=== PATIENT | female | born 1960 | race African-American/Black ===

== ENCOUNTER 2018-03-23 11:17 | Inpatient (IN) | payer MEDICARE ==
[~2018-03-23] VITALS: Ht 167.6 cm; Wt 105.0 kg
[~2018-03-23 11:17] MED LIST: ADVAIR DISKUS INH; ALBUTEROL S2.5 MG/.5 IN; ALLEGRA30 MG OR; CHILD ASA LS81 MG OR; COZAAR25 MG PO; JANUVIA50 MG PO; LANTUS SC; LASIX 40 MG TAB40 MG PO; LEVAQUIN500 MG PO; LEVEMIR SC; METFORMIN1000 MG OR; NAPROXEN500 MG OR; NEURONTIN100 MG OR; NORVASC10 M1 OR; PHENTERMINE37.5 MG PO; PLAVIX75 MG OR; PLETAL50 MG OR; PREDNISONE10 MG PO; PROTONIX40 M1 PO; SINGULAIR OR; SPIRIVA HANDIHALER IN; SYMBICORT1 AE1 IN; TOPROL XL25 M1 OR
[2018-03-23 11:58] VITALS: BP 152/95
[2018-03-23 11:58] LABS: HEMATOCRIT 41.2 % (37.0-47.0); HEMOGLOBIN 13.1 g/dl (12.0-16.0); IMMATURE GRANULOCYTES 1.3 % (0.0-1.0); MEAN CELL VOLUME 82.4 fL CALC (80.0-100.0); MEAN CORPUSCULAR HGB 26.2 pG CALC (26.0-32.0); MEAN CORPUSCULAR HGB CONC 31.8 g/L CALC (32.0-36.0); NEUT# 13.54 thou/uL (2.00-7.15); RED CELL DISTRI WIDTH 17.6 % (11.5-15.5)
--- NOTE | 2018-03-23 12:00 | NUR ---
PT ARRIVED ON UNIT VIA W/C @ 1132 DIRECT ADMIT WITH O2 VIA NC IN PLACE, ALERT AND ORIENTED X 4, DENIES PAIN AT THIS TIME, ORIENTED TO ROOM AND CALL BARR, SETTLED IN BED, EDUCATED ON RIGHTS, WILL CONTINUE TO [place].
[2018-03-23 12:14] LABS: CREATININE 1.4 mg/dL (0.5-1.0); POTASSIUM 4.5 mmol/l (3.5-5.1)
[2018-03-23 14:32] LABS: URINE BILIRUBIN - DIPSTICK NEGATIVE (NEGATIVE); URINE BLOOD DIPSTICK TRACE-INTACT (NEGATIVE); URINE COLOR YELLOW; URINE GLUCOSE - DIPSTICK NEGATIVE (NEGATIVE); URINE KETONE NEGATIVE (NEGATIVE); URINE LEUK ESTERASE NEGATIVE (NEGATIVE); URINE NITRITE - DIPSTICK NEGATIVE (Negative); URINE PROTEIN - DIPSTICK TRACE mg/dL (NEG-TRACE); URINE UROBILINOGEN - DIPSTICK 0.2 E.U./dL (0.2)
[2018-03-23 14:45] LABS: URINE CLARITY CLEAR
[2018-03-23 15:53] VITALS: BP 129/73
[2018-03-23 19:27] VITALS: BP 145/72
--- NOTE | 2018-03-23 20:10 | NUR ---
PT AWAKE RESTING IN BED. ALERT AND ORIENTED X4. O2 N/C ON AT 2L. RESP EVEN AND UNLABORED. VSS. PT IS AFEBRILE. O2 SAT 94%. LUNGS CLEAR BILAT. ABD SOFT AND NONDISTENDED WITH BOWEL SOUNDS PRESENT. PT HAS +1 NONPITTING EDEMA NOTED TO RT LOWER EXT. PEDAL PULSES PALPATED BILAT. HEPLOCK PATENT IN RT FOREARM NO REDNESS OR TENDERNESS AT SITE. SKIN IS INTACT. TELE READING SR PER E.R HOSE MAKER. PT DENIES ANY PAIN OR DISCOMFORT. FREQUENT ROUNDS MADE. CALL BARR WITHIN REACH.
[2018-03-24 00:05] VITALS: BP 124/81
--- NOTE | 2018-03-24 00:13 | NUR ---
RESTING IN BED WITH EYES CLOSED. RESP EVEN AND UNLABORED. NO DISTRESS NOTED. PT IS WEARING HOME CPAP. HEPLOCK PATENT. VSS. TELE INTACT. WILL CONTINUE TO MONITOR. FREQUENT ROUNDS MADE. CALL BARR WITHIN REACH.
[2018-03-24 04:05] VITALS: BP 149/84
--- NOTE | 2018-03-24 04:30 | NUR ---
PT WOKE FOR MORNING VITALS. VSS. PT REFUSES TO BE WT. UNABLE TO GET PTS QD WT DUE TO PT REFUSING. RESP EVEN AND UNLABORED. NO DISTRESS NOTED. HEPLOCK PATENT. TELE INTACT. ASSESSMENT UNCHANGED. FREQUENT ROUNDS MADE. CALL BARR WITHIN REACH.
--- NOTE | 2018-03-24 04:45 | NUR ---
PT OOB TO BATHROOM AND AGREES TO BE WEIGHED. WT OBTAINED AND DOCUMENTED 116.2KG ON STANDING SCALE.
[2018-03-24 05:50] LABS: HEMATOCRIT 37.6 % (37.0-47.0); HEMOGLOBIN 11.9 g/dl (12.0-16.0); IMMATURE GRANULOCYTES 1.5 % (0.0-1.0); MEAN CELL VOLUME 81.7 fL CALC (80.0-100.0); MEAN CORPUSCULAR HGB 25.9 pG CALC (26.0-32.0); MEAN CORPUSCULAR HGB CONC 31.6 g/L CALC (32.0-36.0); NEUT# 11.9 thou/uL (2.00-7.15); RED BLOOD COUNT 4.6 mill/uL (4.20-5.60); RED CELL DISTRI WIDTH 17.2 % (11.5-15.5)
[2018-03-24 06:00] LABS: ALBUMIN 3.5 g/dL (3.2-5.0); BILIRUBIN, TOTAL 0.6 mg/dL (0.0-1.4); CREATININE 1.2 mg/dL (0.5-1.0); POTASSIUM 4.4 mmol/l (3.5-5.1); TOTAL PROTEIN 6.6 g/dL (6.3-8.2)
[2018-03-24 06:02] LABS: CHOLESTEROL HDL RATIO 1.7 (<4.4 (CALC)); MAGNESIUM 1.9 mg/dL (1.6-2.3)
--- NOTE | 2018-03-24 07:41 | NUR ---
SHIFT CHANGE REPORT FROM ALBERTO, PT AWAKE ALERT AND ORIENTED, DENIES PAIN BUT C/O DRY MOUTH AND GIVEN ICE CHIPS REQUESTED, O2 @ 2L VIA NC IN PLACE, TELE MONITER IN PLACE. PT INFORMED SHE IS BEING MONITORED FOR I&O AND SHOULD REPORT ANY FLUIDS SHE INGEST, CALL BARR IN REACH.
--- NOTE | 2018-03-24 08:00 | NUR ---
PT QUESTIONED ME IF SHE WAS ON FLUID RESTRICTION AND I INFORMED HER SHE WAS ON STRICT I&O BUT NOT FLUID RESTRICTION AND EXPLAINED THE DIFFERENCE BETWEEN THE TWO. SHE THEN REPORTED RN AND AUTOMATION LEAD REFUSED TO GIVE HER H2O WHEN SHE REQUESTED IT TELLING HER SHE WAS ON FLUID RESTRICTION. SHE FURTHER COMPLAINED HER MOUTH WAS VERY DRY AND SHE WAS UNCOMFORTABLE WITH IT ALSO THAT NO ONE HAD TOLD HER ABOUT THIS NEW ORDER. ORDERS WERE REVIEWED AND REMAINDED SAME (STRICT I&O). SHE WAS OFFERED H2O AT THIS TIME.
--- NOTE | 2018-03-24 08:38 | NUR ---
CHASE FROM DIETARY REPORTED PT DOES NOT WANT TO TALK TO HER ABOUT MEAL,I WENT TO INVESTIGATE MATTER AND PT REPORTED CHASE WAS VERY RUDE TO HER ADDRESSING HER A MALE, SHE ADVISED HER SHE WAS NOT A MALE AND SOME ARGUENT CONSUED WHICH MADE PT IRATE TO THE POINT WHERE SHE REFUSES HER MEAL STATING SHE DOES NOT KNOW WHAT CHASE PLACED IN HER MEAL FROM THE KITCHEN TO THE UNIT. I WAS NOT ABLE TO REASSURE HER THAT STAFF WOULD/COULD NOT DO ANYTHING TO HARM OUR PTS, THERFORE I RELAYED CONCERN TO DIAMOND SETTER APPRENTICE IT APPEARS THE SITUATION WILL GET OUT OF HAND.
[2018-03-24 09:42] VITALS: BP 163/90
--- NOTE | 2018-03-24 11:00 | NUR ---
MEAL TEMPERER CAME TO UNIT IMMEDIATELY AFTER HEARING OF PT'S CONCERNS AND ADDRESSED SITUATION, SOLUTION MANAGER WAS ALSO INFORMED OF CONCERNS AND WENT TO SPEAK WITH PT. PT WAS VERY APPRECIATIVE OF STAFF'S COMING TO ADDRESS HER CONCERNS. SHE WAS AND IS STILL ADAMANT ABOUT NOT EATING FOOD FROM OUR KITCHEN AND MAINTAINS SHE DOES NOT KNOW WHAT CHASE MIGHT PUT N HER FOOD.
[2018-03-24 12:00] VITALS: BP 127/70
--- NOTE | 2018-03-24 12:00 | NUR ---
PT WAS THANKFUL FOR THE INTERVENTION BUT DID NOT CHANGE HER MIND ABOUT NOT EATING FROM OUR KITCHEN.
[2018-03-24 16:00] VITALS: BP 116/78
--- NOTE | 2018-03-24 16:00 | NUR ---
INFORMED OF NEW ORDERS, TRANSPORTED OFF UNIT FOR PROCEDURE IN W/C WITH STAFF AND RETURNED DURING SUPPER TIME, ALL NEEDS ADDRESSED, WILL CONTINUE TO MONITOR.
[2018-03-24 19:25] VITALS: BP 144/77
--- NOTE | 2018-03-24 20:00 | NUR ---
PT SITTING ON SIDE OF BED. RESP EVEN AND UNLABORED WITH O2 IN PLACE. LUNGS DIMINISHED BILAT. TELE IN PLACE. ABD SOFT; ACTIVE BOWEL SOUNDS NOTED. PEDAL PULSES PALPATED BILAT. IV RFA PATENT; FLUSHED WITHOUT DIFFICULTY. PT OFFERS NO COMPLAINTS. SAFETY PRECAUTIONS REINFORCED. FREQUENT ROUNDS MADE; CALL LIGHT WITHIN REACH.
[2018-03-25 00:08] VITALS: BP 132/80
--- NOTE | 2018-03-25 00:20 | NUR ---
RESP EVEN AND UNLABORED WITH CPAP IN PLACE. TELE IN PLACE. CALL LIGHT WITHIN REACH.
--- NOTE | 2018-03-25 04:25 | NUR ---
ASSESSMENT UNCHANGED. RESP EVEN AND UNLABORED WITH CPAP IN PLACE. TELE IN PLACE. PT DENIES PAIN OR DISCOMFORT. CALL LIGHT WITHIN REACH.
[2018-03-25 04:55] VITALS: BP 124/74
[2018-03-25 05:23] LABS: HEMATOCRIT 36.4 % (37.0-47.0); HEMOGLOBIN 11.7 g/dl (12.0-16.0); IMMATURE GRANULOCYTES 1.2 % (0.0-1.0); MEAN CORPUSCULAR HGB 26.4 pG CALC (26.0-32.0); MEAN CORPUSCULAR HGB CONC 32.1 g/L CALC (32.0-36.0); NEUT# 13.39 thou/uL (2.00-7.15); RED BLOOD COUNT 4.44 mill/uL (4.20-5.60); RED CELL DISTRI WIDTH 17.4 % (11.5-15.5)
[2018-03-25 05:39] LABS: ALBUMIN 3.2 g/dL (3.2-5.0); BILIRUBIN, TOTAL 0.5 mg/dL (0.0-1.4); CREATININE 1.3 mg/dL (0.5-1.0); POTASSIUM 4.4 mmol/l (3.5-5.1); TOTAL PROTEIN 6.1 g/dL (6.3-8.2)
--- NOTE | 2018-03-25 07:00 | NUR ---
SHIFT CHANGE REPORT FROM LORETO, PT AWAKE ALERT AND ORIENTED SITTING UP AT BEDSIDE, NO C/O DISCOMFORT AT THIS TIME, MAINTAINS HER REFUSAL TO EAT FORM OUR KITCHEN AND HAD SPOUSE BROUGHT IN MEAL, WILL CONTINUE TO MONITOR AND ADDRESS NEEDS.
[2018-03-25 07:45] VITALS: BP 133/73
--- NOTE | 2018-03-25 11:28 | NUR ---
RESTING IN BED, ALL NEEDS MET/ADDRESSED, STATES SHE WILL BE ASKING SPOUSE TO BRING HER LUNCH AGAIN TODAY, SPOUSE AND FAMILY AT BEDSIDE
--- NOTE | 2018-03-25 11:41 | NUR ---
DR ZELAYA ROUNDED AND INFORMED PT OF POC, WILL CONTINUE TO MONITOR.
[2018-03-25 12:05] VITALS: BP 130/74
[2018-03-25 15:56] VITALS: BP 124/72
[2018-03-25 19:00] VITALS: BP 124/72
--- NOTE | 2018-03-25 22:00 | NUR ---
PREVIOUSLY ATTEMPTED TO FLUSH PT IV. PT STATES BURNING BUT NORMAL FOR HER AND SHE DIDN'T WANT TO LOSE THE IV SITE. DIFFICULT TO START NS FLUSH BUT PROCEEDED TO FLUSH WELL GOING VERY SLOW FOR PATIENT. SOLUMEDROL GIVEN PER MAR WITH OUT ISSUE THEN FOLLOWED WITH NS FLUSH WHICH STARTED BECOMING DIFFICULT TO FLUSH AND PT STATES BURNING MORE. NEW IV STARTED LFA BY PADMINI ZAPATA X1 ATTEMPT. NEW IV FLUSHED WELL AND ANTIBIOTIC HUNG PER JAN.
[2018-03-26 00:10] VITALS: BP 128/74
[2018-03-26 04:15] VITALS: BP 137/85
[2018-03-26 05:17] LABS: HEMATOCRIT 36.9 % (37.0-47.0); HEMOGLOBIN 11.7 g/dl (12.0-16.0); IMMATURE GRANULOCYTES 1.3 % (0.0-1.0); MEAN CELL VOLUME 82.9 fL CALC (80.0-100.0); MEAN CORPUSCULAR HGB 26.3 pG CALC (26.0-32.0); MEAN CORPUSCULAR HGB CONC 31.7 g/L CALC (32.0-36.0); NEUT# 13.85 thou/uL (2.00-7.15); RED BLOOD COUNT 4.45 mill/uL (4.20-5.60); RED CELL DISTRI WIDTH 17.3 % (11.5-15.5)
[2018-03-26 05:39] LABS: CREATININE 1.5 mg/dL (0.5-1.0); POTASSIUM 4.4 mmol/l (3.5-5.1)
--- NOTE | 2018-03-26 07:00 | NUR ---
SHIFT CHANGE REPORT FROM TIBURCIO ANDINO AWAKE ALERT AND ORIENTED, O2 @ 2L VIA NC IN PLACE, TELE MONITOR IN PLACE, NO C/O DISCOMFORT, CALL BARR IN REACH.
--- NOTE | 2018-03-26 07:30 | NUR ---
REPORT TO NEXT SHIFT. PT SITTING UP ON SIDE OF BED WITH FAMILY AT BEDSIDE.
[2018-03-26 07:56] VITALS: BP 140/78
--- NOTE | 2018-03-26 09:49 | NUR ---
PT JUST ARRIVED FROM BR, CHANGE IN STATUS OBSERVED, PT REPORTED SHE HAS MIDSTERNAL CHEST PAIN AND SOB OBSERVED, EKG ORDERED, WILL CONTINUE TO MONITOR AND ASSESS.
--- NOTE | 2018-03-26 10:05 | NUR ---
DR ZELAYA JUST ARRIVED TO ROUND AND INFORMED OF CONCERNS, WILL CONTINUE TO MONITOR.
[2018-03-26 11:50] VITALS: BP 138/75
--- NOTE | 2018-03-26 12:00 | NUR ---
PT REQUESTED MEAL BUT ONLY TOOK FEW BITES. LEFT UNIT FOR ULTRA SOUND OF LE AND RETURNED, SETTLED IN BED, COMMUNICATING WITH VISITORS, STATES HER CHEST PAIN IS RESOLVED, WILL CONTINUE TO MONITOR.
[2018-03-26 16:05] VITALS: BP 152/73
--- NOTE | 2018-03-26 19:00 | NUR ---
REPORT RECEIVED FROM PADMINI KIM.
[2018-03-26 19:10] VITALS: BP 127/70
--- NOTE | 2018-03-26 19:33 | NUR ---
ASSESSMENT CHARTED. PT ALERT AND ORIENTED, CALM AND COOPERATIVE. DENIES ANY PAIN OR NEEDS AT THIS TIME. RESP EVEN AND UNLABORED. HR REGULAR, PULSES STRONG. FAUSTO HOSE IN PLACE W NON SLIP SOCKS OVER, SIDE RAILS UP, CALL LIGHT IN REACH. PT TEACHING DONE AND RESPONSIVE. WILL CONTINUE TO MONITOR.
--- NOTE | 2018-03-27 | NUR ---
IN TO CHECK ON PATIENT, LAYING IN BED WITH CPAP. AWOKE UPON OUR ENTRANCE TO ROOM. FOCUS ASSESSMENT PER CHART.
[2018-03-27 00:05] VITALS: BP 149/74
[2018-03-27 04:10] VITALS: BP 131/72
[2018-03-27 05:25] LABS: HEMATOCRIT 38.5 % (37.0-47.0); HEMOGLOBIN 12.3 g/dl (12.0-16.0); IMMATURE GRANULOCYTES 1.6 % (0.0-1.0); MEAN CORPUSCULAR HGB 26.5 pG CALC (26.0-32.0); MEAN CORPUSCULAR HGB CONC 31.9 g/L CALC (32.0-36.0); NEUT# 11.96 thou/uL (2.00-7.15); RED BLOOD COUNT 4.64 mill/uL (4.20-5.60); RED CELL DISTRI WIDTH 17.2 % (11.5-15.5)
[2018-03-27 05:38] LABS: ALBUMIN 3.1 g/dL (3.2-5.0); BILIRUBIN, TOTAL 0.4 mg/dL (0.0-1.4); CREATININE 1.2 mg/dL (0.5-1.0); MAGNESIUM 1.8 mg/dL (1.6-2.3)
--- NOTE | 2018-03-27 06:21 | NUR ---
ENTERED ROOM FOR MEDICINE/FLUSH. PT AWOKE UPON ENTERING. PLEASANT, ALERT AND ORIENTED. DENIES NEEDS AT THIS TIME. PT STATES SHE SLEPT PRETTY WELL. CALL LIGHT IN REACH.
--- NOTE | 2018-03-27 07:00 | NUR ---
BEDSIDE REPORT RECEIVCED BY JOSE. PT IS SITTING IN THE SIDE OF THE BED WITH NO S/S OF DISTRESS NOTED. PT DENIES NEEDS AT THIS TIME. CALL LIGHT IN REACH.
[2018-03-27 08:00] VITALS: BP 146/85
--- NOTE | 2018-03-27 08:05 | NUR ---
PT IS SITTING IN THE SIDE OF THE BED. ASSESSMENT DONE AND TELE IN PLACE. LUNG SOUND CLEAR/ DIMINISHED. O2 AT 2L/MIN VIA NC.# 22RW THAT APPEARS HEALTHY. PT DENIES PAIN AT THIS TIME. SAFETY PRECAUTIONS REINFORCED AND CALL LIGHT IN REACH.
[2018-03-27] MEDS ORDERED: LOPRESSOR25 M1 PO (10:50)
[2018-03-27] MEDS ORDERED: LOPRESSOR 550 MG/TAB PO (10:50)
[2018-03-27] MEDS ORDERED: CLONIDINE0.1 MG PO (10:50)
[2018-03-27] MEDS ORDERED: COZAAR100 MG PO (10:51)
[2018-03-27] MEDS ORDERED: LIPITOR40 M1 PO (10:55)
[2018-03-27] MEDS ORDERED: HUMULIN 70/30 SC (10:55)
[2018-03-27] MEDS ORDERED: PREDNISONE10 MG PO (10:58)
[2018-03-27] MEDS ORDERED: DOXYCYCL HYC100 MG PO (10:58)
[2018-03-27] MEDS ORDERED: BUMETANIDE0.5 MG PO (10:58)
[2018-03-27 11:58] VITALS: BP 145/81
--- NOTE | 2018-03-27 12:00 | NUR ---
PT IS SITTING IN RECLINER EATING HER LUNCH WITH NO S/S OF DISTRESS NOTED. PT DENIES NEEDS AT THIS TIME. CALL LIGHT IN REACH.
--- NOTE | 2018-03-27 14:32 | NUR ---
Discharge instructions given. Patient verbalizes understanding of same. Discharged in stable condition via Wheelchair to Home with spouse. All belongings sent with pt.
== END 2018-03-27 14:32 | disposition home health service (06) | DRG 291 ==
LOC: MS2 11:17
PROVIDERS: Internal Medicine; Nurse Practitioner Family; ADMIT Internal Medicine; ATTEND Internal Medicine
DX: I13.0 Hypertensive heart and chronic kidney disease with heart failure and stage 1 through stage 4 chronic kidney disease, or unspecified chronic kidney disease (principal); I50.33 Acute on chronic diastolic (congestive) heart failure; E11.22 Type 2 diabetes mellitus with diabetic chronic kidney disease; E11.42 Type 2 diabetes mellitus with diabetic polyneuropathy; J44.1 Chronic obstructive pulmonary disease with (acute) exacerbation; R04.2 Hemoptysis; Z68.41 Body mass index [BMI] 40.0-44.9, adult; N18.3 Chronic kidney disease, stage 3 (moderate); E11.51 Type 2 diabetes mellitus with diabetic peripheral angiopathy without gangrene; E78.5 Hyperlipidemia, unspecified; I25.10 Atherosclerotic heart disease of native coronary artery without angina pectoris; E66.9 Obesity, unspecified; M79.604 Pain in right leg; Z95.5 Presence of coronary angioplasty implant and graft; Z95.828 Presence of other vascular implants and grafts; Z99.81 Dependence on supplemental oxygen; Z86.73 Personal history of transient ischemic attack (TIA), and cerebral infarction without residual deficits; Z87.891 Personal history of nicotine dependence; Z79.4 Long term (current) use of insulin; R06.00 Dyspnea, unspecified
CPT/HCPCS: A9540; A9567

== ENCOUNTER 2018-06-10 00:39 | Inpatient (IN) | payer MEDICARE ==
[~2018-06-10] VITALS: Ht 167.6 cm; Wt 123.3 kg
[~2018-06-10 00:39] MED LIST changes: +BUMETANIDE0.5 MG PO; +CLONIDINE0.1 MG PO; +COZAAR100 MG PO; +DOXYCYCL HYC100 MG PO; +HUMULIN 70/30 SC; +LIPITOR40 M1 PO; +LOPRESSOR 550 MG/TAB PO; +LOPRESSOR25 M1 PO
--- NOTE | 2018-06-10 00:39 | NUR ---
TO ROOM 9 VIA STRETCHER BY EMS. ALERT. GAMAL. O2 VIA N/C IN USE. REPORTS USES N/C AT 4-6 LITERS/MIN DURING DAY AND C-PAP AT NIGHT. REMOVED C-PAP TO GO TO BATHROOM. FELL ONTO FLOOR. FAMILY STARTED CPR
[2018-06-10] MEDS ORDERED: BUMEX1 M1 PO (01:13)
[2018-06-10] MEDS ORDERED: CILOSTAZOL100 MG PO (01:14)
[2018-06-10] MEDS ORDERED: HUMULIN 70/30 SC ×2 (01:16→01:17)
[2018-06-10] MEDS ORDERED: LOSARTAN POT50 MG PO (01:18)
[2018-06-10] MEDS ORDERED: PROTONIX40 M2 PO (01:19)
[2018-06-10] MEDS ORDERED: ALLEGRA180 MG PO (01:20)
[2018-06-10] MEDS ORDERED: DULERA1 AE1 IN (01:21)
[2018-06-10] MEDS ORDERED: SPIRIVA HANDIH18 MCG IN (01:22)
[2018-06-10] MEDS ORDERED: VENTOLIN HFA IN (01:23)
--- NOTE | 2018-06-10 01:30 | NUR ---
BEDRESTING. O2 IN USE RECOMMENDED. SAT REMAINS GREATER THAN 90%. C/O H/A
[2018-06-10 01:41] LABS: HEMATOCRIT 36.8 % (37.0-47.0); HEMOGLOBIN 11.7 g/dl (12.0-16.0); IMMATURE GRANULOCYTES 1.3 % (0.0-1.0); MEAN CELL VOLUME 81.2 fL CALC (80.0-100.0); MEAN CORPUSCULAR HGB 25.8 pG CALC (26.0-32.0); MEAN CORPUSCULAR HGB CONC 31.8 g/L CALC (32.0-36.0); NEUT# 7.44 thou/uL (2.00-7.15); RED BLOOD COUNT 4.53 mill/uL (4.20-5.60); RED CELL DISTRI WIDTH 15.5 % (11.5-15.5)
[2018-06-10 01:57] LABS: BILIRUBIN, TOTAL 0.7 mg/dL (0.0-1.4); CREATININE 2.1 mg/dL (0.5-1.0); POTASSIUM 3.4 mmol/l (3.5-5.1); TOTAL PROTEIN 6.1 g/dL (6.3-8.2)
--- NOTE | 2018-06-10 02:30 | NUR ---
STATES VOMITIED WHILE IN CT. FAMILY REMAINS AT BEDSIDE
--- NOTE | 2018-06-10 03:00 | NUR ---
BEDRESTING. EYES CLOSED. NO FURTHER VOMITING
--- NOTE | 2018-06-10 03:16 | NUR ---
VOIDED 300ML CLEAR URINE ON BEDPAN
--- NOTE | 2018-06-10 03:20 | NUR ---
DISCUSSED FINDINGS WITH PT AND ADVISED ADMISSION. PT AGREED. FAMILY GOING HOME TO GET C.PAP FOR PATIENT.
[2018-06-10 03:33] LABS: URINE BILIRUBIN - DIPSTICK NEGATIVE (NEGATIVE); URINE BLOOD DIPSTICK TRACE-INTACT (NEGATIVE); URINE COLOR YELLOW; URINE GLUCOSE - DIPSTICK 100 mg/dL (NEGATIVE); URINE KETONE NEGATIVE (NEGATIVE); URINE LEUK ESTERASE NEGATIVE (NEGATIVE); URINE NITRITE - DIPSTICK NEGATIVE (Negative); URINE PH 6.5 (4.5-8.0); URINE PROTEIN - DIPSTICK 100 mg/dL (NEG-TRACE); URINE UROBILINOGEN - DIPSTICK 0.2 E.U./dL (0.2)
[2018-06-10 03:36] LABS: URINE CLARITY CLEAR
[2018-06-10 03:38] LABS: BARBITURATES NEGATIVE (NEGATIVE); COCAINE NEGATIVE (NEGATIVE); METHADONE NEGATIVE (NEGATIVE); OXCYCODONE NEGATIVE (NEGATIVE); TETRAHYDROCANNABIONOL NEGATIVE (NEGATIVE); TRICYLIC ANTIDEPRESSANTS NEGATIVE (NEGATIVE)
[2018-06-10 03:45] LABS: URINE BACTERIA FEW hpf; URINE RBC 0-2 RBC/hpf (0-5); URINE SQUAMOUS EPITHELIAL CELL RARE EPI/hpf (0-FEW); URINE WBC 0-2 WBC/hpf (0-5)
--- NOTE | 2018-06-10 03:50 | NUR ---
report called to karma horton. to go to [facility]
--- NOTE | 2018-06-10 04:00 | NUR ---
TO [facility] VIA STRETCHER. DAUGHTER AND AT SIDE. BROUGHT C.PAP FORM HOME
[2018-06-10 04:10] VITALS: BP 125/80
--- NOTE | 2018-06-10 04:10 | NUR ---
PT ARRIVED TO UNIT VIA STRETCHER WITH ER STAFF AND 2 FAMILY MEMBERS; FLAT AFFECT AND ORIENTED. PT SELF ASSISTED HERSELF FROM STRETCHER TO BED. C/O HEADACHE 06/06; STATES THAT TORADOL GIVEN IN ER IS HAVING GOOD EFFECT NOW. RESPIRATIONS EVEN AND UNLABORED ON 6L VIA NC; CPAP SET UP BY RT. PT STATES THAT SINCE DAY SHE HAS BEEN LIVING IN [place] WITH HER DAUGHTER AND GOING TO A PULMONARY REHAB TWICE A WEEK. SHE CAME TO [facility] FOR THE WEEKEND AND WAS SEEN IN DR. PARSONS OFFICE Tuesday06/09/18 AND IS TO BE BACK IN THE OFFICE THIS MORNING 06/10/18. ORIENTED TO ROOM AND CALL LIGHT SYSTEM. PLAN OF CARE DISCUSSED PT ENCOURAGED TO VERBALIZE CONCERNS. STATES UNDERSTANDING. SAFETY MEASURES IN PLACE. CALL LIGHT WITHIN REACH.
--- NOTE | 2018-06-10 05:58 | NUR ---
PT RESTING IN BED WITH EYES CLOSED AND CPAP IN PLACE; NO RESPIRATORY DISTRESS NOTED. 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 SAFETY MEASURS IN PLACE. CALL LIGHT WITHIN REACH.
[2018-06-10 07:58] VITALS: BP 102/76
--- NOTE | 2018-06-10 09:30 | NUR ---
PT RESTING QUIETLY IN BED. ASSESSMENT COMPLETED. FAMILY AT BEDSIDE. NO RESP. DISTRESS NOTED. PT USING C-PAP MACHINE. WILL CONTINUE TO MONITOR.
--- NOTE | 2018-06-10 10:30 | NUR ---
PT REQUESTED TO USE O2 RATHER THAN C-PAP MACHINE. PT SWITCHED TO O2 AT 6 LITERS. WILL CONTINUE TO MONITOR. CALL LIGHT WITHIN REACH.
[2018-06-10 10:44] LABS: HEMATOCRIT 38.3 % (37.0-47.0); HEMOGLOBIN 12.1 g/dl (12.0-16.0); IMMATURE GRANULOCYTES 0.4 % (0.0-1.0); MEAN CORPUSCULAR HGB 25.6 pG CALC (26.0-32.0); MEAN CORPUSCULAR HGB CONC 31.6 g/L CALC (32.0-36.0); NEUT# 7.98 thou/uL (2.00-7.15); RED BLOOD COUNT 4.73 mill/uL (4.20-5.60); RED CELL DISTRI WIDTH 15.5 % (11.5-15.5)
[2018-06-10 12:05] LABS: ALBUMIN 3.1 g/dL (3.2-5.0); BILIRUBIN, TOTAL 0.8 mg/dL (0.0-1.4); CREATININE 2.2 mg/dL (0.5-1.0); TOTAL PROTEIN 6.3 g/dL (6.3-8.2)
[2018-06-10 12:12] LABS: POTASSIUM 4.3 mmol/l (3.5-5.1)
--- NOTE | 2018-06-10 12:15 | NUR ---
GASTROGRAPHIN GIVEN AND WILL CONTINUE X 3 DOSES. PT UNDERSTANDS SHE IS GOING FOR A CT SCAN. VISITORS AT BEDSIDE. NO CHANGE IN ASSESSMENT WILL CONTINUE TO MONITOR. CALL LIGHT WITHIN REACH.
[2018-06-10 13:51] LABS: MAGNESIUM 2.2 mg/dL (1.6-2.3)
--- NOTE | 2018-06-10 15:00 | NUR ---
PT TO XRAY VIA WHEELCHAIR. ASSIST OF TWO TO CHAIR. O2 AT 6 LITERS VIA PORTABLE O2 TANK. FAMILY MEMBERS AT BEDSIDE.
--- NOTE | 2018-06-10 15:30 | NUR ---
PT RETURNED FROM XRAY VIA WHEELCHAIR. ABLE TO ASSIST SELF TO BED. 02 AT 6 LITERS VIA NC. FAMILY AT BEDSIDE WILL CONTINUE TO MONITOR. CALL LIGHT WITHIN REACH. INSTRUCTED PT SHE IS ON A FLUID RESTRICTIONS. PT VERBALIZED UNDERSTANDING OF TEACHING.
[2018-06-10 16:40] VITALS: BP 137/88
--- NOTE | 2018-06-10 18:00 | NUR ---
PT CONTINUES TO REST QUIELTY IN BED. NO RESP. DISTRESS NOTED. NO CHANGE IN ASSESSMENT. WILL CONTINUE TO MONITOR. CALL LIGHT WITHIN REACH.
--- NOTE | 2018-06-10 19:30 | NUR ---
PATIENT WATCHING TV WITH AT THE BEDSIDE. RESP EVEN AND UNLABORED. NO S/S OF DISTRESS NOTED. PLAN OF CARE DISCUSSED, FALL PRECAUTIONS IN PLACE, INFORMED PATIENT TO CALL WITH ANY QUESTIONS OR CONCCERNS.
[2018-06-10 19:37] VITALS: BP 193/91
[2018-06-11] VITALS (7 sets, daily range): BP systolic 104–137; BP diastolic 72–92
--- NOTE | 2018-06-11 00:19 | NUR ---
PATIENT RESTING WITH EYES CLOSED. RESP EVEN AND UNLABORED. NO S/S OF DISTRESS NOTED. WILL CONTIUNE TO YARITZA.
--- NOTE | 2018-06-11 05:09 | NUR ---
MALL PLANT CARETAKER ATTEMPTED TO GET PTS WEIGHT,PT THEN STATES " SHE IS NOT FIXIN TO GET UP AGAIN RIGHT MOW BECAUSE I FELT REAL SICK WHEN I DID." MALL PLANT CARETAKER LET PT KNOW WE WOULD HAVE TO GET WEIGHT BEFORE BREAKFAST. PT VERBALIZED UNDERSTANDING.
[2018-06-11 05:13] LABS: HEMATOCRIT 36.9 % (37.0-47.0); HEMOGLOBIN 11.5 g/dl (12.0-16.0); IMMATURE GRANULOCYTES 0.7 % (0.0-1.0); MEAN CELL VOLUME 82.7 fL CALC (80.0-100.0); MEAN CORPUSCULAR HGB 25.8 pG CALC (26.0-32.0); MEAN CORPUSCULAR HGB CONC 31.2 g/L CALC (32.0-36.0); NEUT# 6.09 thou/uL (2.00-7.15); RED BLOOD COUNT 4.46 mill/uL (4.20-5.60); RED CELL DISTRI WIDTH 15.7 % (11.5-15.5)
[2018-06-11 05:37] LABS: CHOLESTEROL HDL RATIO 2.9 (<4.4 (CALC)); CREATININE 1.9 mg/dL (0.5-1.0)
--- NOTE | 2018-06-11 06:40 | NUR ---
PATIENT RESTING WITH EYES CLOSED. RESP EVEN AND UNLABORED. NO S/S OF DISTRESS NOTED.
--- NOTE | 2018-06-11 07:58 | NUR ---
PT SITTING UP ON SIDE OF BED. VSS. ASSESMENT COMPLETED. IVF INFUSING AT PRESCRIBED RATE. FAMILY MEMBERS AT BEDSIDE. PT C/O DIARRHEA LAST NIGHT. STATES THIS MORMNING "VERY GASSY". TELE MONITOR IN PLACE. PT SATING 95% ON O2 AT 6L/MIN. POC DISCUSSED WITH PT AND FAMILY. PT & FAMILY VERBALIZE UNDERSTANDING. WILL CONTINUE TO MONITOR. CALL LIGHT IN REACH.
--- NOTE | 2018-06-11 12:00 | NUR ---
mx family at bedside. pt voices no c/o at this time. previously medicated for a headache. ivf infusing at prescribed rate. will continue to monitor. call light in reach.
--- NOTE | 2018-06-11 16:33 | NUR ---
MULTIPLE FAMILY AT BEDSIDE. PT PREVIOUSLY MEDICATED FOR HEADACHE. PT SITTING UP IN BED. NO C/O AT THIS TIME. WILL CONTINUE TO MONITOR. CALL LIGHT IN REACH.
--- NOTE | 2018-06-11 20:00 | NUR ---
BEDSIDE REPORT RECEIVED FROM HUNG QUIJANO. PT RESTING IN BED ON RIGHT SIDE WITH SEVERAL FAMILY MEMBERS AT BEDSIDE. STATES THAT HEADACHE HAS RESOLVED SINCE MEDICATION GIVEN EARLIER. RESPIRATIONS EVEN AND UNLABORED ON OXYGEN. PLAN OF CARE REVIEWED. PT ENCOURGED TO VERBALIZE CONCERNS. STATES UNDERSTANDING. SAFETY MEASURES IN PLACE. CALL LIGHT WITHIN REACH.
--- NOTE | 2018-06-11 22:02 | NUR ---
ULTRAM GIVEN FOR HEADACHE. CPAP ON AT HS. ONE FAMILY MEMBER REMAINS AT BEDSIDE. PT REPORTS MILD ANXITY AND RESTLESSNESS SINCE SHE FOUND OUT THAT HER NIECE TODAY. COMFORT AND CARE GIVEN. WILL CONTINUE TO MONITOR.
[2018-06-12 00:28] VITALS: BP 132/83
--- NOTE | 2018-06-12 01:16 | NUR ---
PT HAD SMALL EMESIS SHE STATES BECAUSE SHE GOT OVERHEATED. ROOM TEMPERATURE ON COLD AND FAN PLACED FOR COMFORT. PT STATES THAT SHE NOW HAS MILD NAUSEA, BUT DECLINES ANY NAUSEA MEDICATION. IV FLUIDS INFUSING WITHOUT DIFFICULTY; IV SITE APPEARS HEALTHY. ONE PERSON ASSIST WITH BATHROOM. FAMILY MEMBER REMAINS AT BEDSIDE. SAFETY MEASURES IN PLACE. CALL LIGHT WITHIN REACH.
[2018-06-12 03:40] VITALS: BP 150/103
--- NOTE | 2018-06-12 04:40 | NUR ---
PT SMALL EMESIS X 1 AFTER A FEW HOURS OF NAUSEA. ZOFRAN GIVEN X 1 DOSE WITH GOOD EFFECT. PT UP TO BATHROOM FOR LOOSE BM WITH SOME STOMACH UPSET. NO C/O HEADACHE AT THIS TIME. PT DECLINES EMS IV SITE TO CHANGED AT THIS TIME DUE TO HER HAVING POOR VENOUS ACCESS. CALL LIGHT WITHIN REACH.
--- NOTE | 2018-06-12 07:20 | NUR ---
REPORT RECEIVED FROM PADMINI MANCILLA;PT APPEARS TO BE RESTING IN SEMI FOWLERS POSITION WITH FAMILY AT BEDSIDE;PT REPORTS LITTLE SLEEP LAST NIGHT AND EXPRESSES WISHES TO SLEEP THROUGHOUT THE DAY;RESPIRATIONS EVEN AND UNLABORED ON HOME CPAP;ENCOURAGED PT TO CALL FOR ASSISTANCE IF NEEDED;FALL PRECAUTIONS IN PLACE WITH BED IN THE LOWEST POSITION;CALL LIGHT IN REACH;WILL CONTINUE TO MONITOR
--- NOTE | 2018-06-12 08:00 | NUR ---
PT RESTING IN SEMI FOWLERS POSITION WITH MULTIPLE FAMILY MEMBERS AT BEDSIDE;VS OBTAINED AND ASSESSMENT COMPLETED;PT DENIES ANY CURRENT PAIN,PAIN SCALE AND REPORTING EDUCATED;RESPIRATIONS EVEN AND UNLABORED,SHALLOW ON HOME CPAP;NC AT 6L HUM VIA NC AT BEDSIDE;DIMINISHED LUNG SOUNDS NOTED;ABDOMEN DISTENDED/SOFT ON PALPATION AND ACTIVE IN ALL 4 QUADRANTS;WEAK PEDAL PULSES WITH TRACE EDEMA NOTED;EMS #20G TO LEFT FOREARM INFUSING NS @ 150ML/HR,SITE APPEARS HEALTHY;SKIN INTACT;TELE MONITOR IN PLACE;PT DENIES ANY OTHER CURRENT NEEDS;ENCOURAGED TO CALL FOR ASSISTANCE IF NEEDED;CALL LIGHT IN REACH;WILL CONTINUE TO MONITOR
[2018-06-12 08:01] VITALS: BP 118/52
--- NOTE | 2018-06-12 10:30 | NUR ---
PT MEDICATED WITH PRN ZOFRAN 4MG IVP FOR NAUSEA AND VOMITING,WILL MONITOR FOR EFFECT.
[2018-06-12 11:20] VITALS: BP 131/86
--- NOTE | 2018-06-12 12:00 | NUR ---
PT RESTING IN SEMI FOWLERS POSITION WITH MULTIPLE FAMILY MEMBERS AT BEDSIDE;PT REPORTS A DECREASE IN NAUSEA;RESPIRATIONS EVEN AND UNLABORED ON HOME CPAP;IV SITE PATENT INFUSING @ 50ML/HR PER ORDER;TELE MONITOR IN PLACE;PT DENIES ANY ADDITIONAL NEEDS;ENCOURAGED TO CALL FOR ASSISTANCE IF NEEDED;CALL LIGHT IN REACH;WILL CONTINUE TO MONITOR
[2018-06-12 14:49] VITALS: BP 138/89
--- NOTE | 2018-06-12 16:10 | NUR ---
PT RESTING IN SEMI FOWLERS POSITION WITH FAMILY MEMBERS AT BEDSIDE;RESPIRATIONS EVEN AND UNLABORED,SHALLOW ON HOME CPAP;PT DENIES ANY PAIN OR NAUSEA;NO CHANGE IN ASSESSMENT AT THIS TIME;IV SITE PATENT INFUSING NS @ 50ML/HR;ENCOURAGED PT TO CALL FOR ASSISTANCE IF NEEDED;CALL LIGHT IN REACH;WILL CONTINUE TO MONITOR
[2018-06-12 19:08] VITALS: BP 129/85
--- NOTE | 2018-06-12 19:45 | NUR ---
REPORT RECIEVED, PT RESTING IN SEMI-FOWLERS POSITION. RESP EVEN AND UNLABORED WITH HOME CPAP IN PLACE. TELE ON. IV PATENT; NO REDNESS OR EDEMA NOTED. PT DENIES PAIN. SAFETY PRECAUTIONS REINFORCED. FREQUENT ROUNDS MADE. CALL LIGHT WITHIN REACH.
--- NOTE | 2018-06-12 23:00 | NUR ---
PT RESTING IN BED WITH FAMILY IN ROOM. PT DENIES PAIN. RESP EVEN AND UNLABORED.
[2018-06-13 00:12] VITALS: BP 130/85
--- NOTE | 2018-06-13 00:30 | NUR ---
RESP EVEN AND UNLABORED, PT APPEARS TO BE SLEEPING WITH CPAP IN PLACE. NO DISTRESS NOTED. TELE ON. IV SITE APPEARS HEALTHY. CALL LIGHT WITHIN REACH.
--- NOTE | 2018-06-13 04:15 | NUR ---
PT WOKE FOR MORNING VITALS. ASSESSMENT UNCHANGED. RESP EVEN AND UNLABORED WITH CPAP IN PLACE. TELE ON. IV PATENT. PT DENIES PAIN. CALL LIGHT WITHIN REACH.
[2018-06-13 04:22] VITALS: BP 119/64
[2018-06-13 05:37] LABS: HEMOGLOBIN 12.2 g/dl (12.0-16.0); IMMATURE GRANULOCYTES 0.6 % (0.0-1.0); MEAN CELL VOLUME 82.8 fL CALC (80.0-100.0); MEAN CORPUSCULAR HGB 25.9 pG CALC (26.0-32.0); MEAN CORPUSCULAR HGB CONC 31.3 g/L CALC (32.0-36.0); NEUT# 6.12 thou/uL (2.00-7.15); RED BLOOD COUNT 4.71 mill/uL (4.20-5.60); RED CELL DISTRI WIDTH 15.8 % (11.5-15.5)
[2018-06-13 06:00] LABS: ALBUMIN 2.8 g/dL (3.2-5.0); CREATININE 1.6 mg/dL (0.5-1.0); POTASSIUM 4.2 mmol/l (3.5-5.1)
--- NOTE | 2018-06-13 07:15 | NUR ---
REPORT RECEIVED FROM HUNG DANGELO;PT APPEARS TO BE RESTING IN SEMI FOWLERS POSITION;INTRODUCED SELF TO PT AND POC DISCUSSED;PT DENIES ANY CURRENT PAIN OR NEEDS;RESPIRATIONS APPEAR EVEN AND UNLABORED ON HOME CPAP;ENCOURAGED PT TO CALL FOR ASSISTANCE IF NEEDED;FALL PRECAUTIONS IN PLACE WITH BED IN THE LOWEST POSITION;CALL LIGHT IN REACH;WILL CONTINUE TO MONITOR
--- NOTE | 2018-06-13 09:00 | NUR ---
PT RESTING IN SEMI FOWLERS POSITION WITH FAMILY MEMBER AT BEDSIDE;VS OBTAINED AND ASSESSMENT COMPLETED;PT REPORTS CONSTANT NAUSEA BUT DENIES/REFUSES ANTIEMETIC AT THIS TIME;RESPIRATIONS EVEN AND UNLABORED,SHALLOW ON 02 @ 6L HUM VIA NC;ABDOMEN DISTENDED/SOFT ON PALPATION AND ACTIVE IN ALL 4 QUADRANTS;TELE MONITOR IN PLACE;SKIN INTACT;EMS #20G TO LEFT FOREARM INFUSING NS @50ML/HR,SITE APPEARS HEALTHY;PT EDUCATED ON EMS EXPIRATION DATE BUT REFUSES IV SITE CHANGE AT THIS TIME;TRACE EDEMA NOTED TO BILATERAL ANKLES,ELEVATION ENCOURAGED;FRESH ICE PROVIDED PER REQUEST;PT DENIES ANY ADDITONAL NEEDS AND IS ENCOURAGED TO CALL FOR ASSISTANCE IF NEEDED;CALL LIGHT IN REACH;WILL CONTINUE TO MONITOR
[2018-06-13 09:07] VITALS: BP 124/84
[2018-06-13 11:00] VITALS: BP 111/76
--- NOTE | 2018-06-13 12:20 | NUR ---
PT RESTING IN SEMI FOWLERS POSITION;RESPIRATIONS EVEN AND UNLABORED ON 02 @ 6L HUM VIA NC;PT DENIES ANY CURRENT PAIN OR NEEDS;TELE MONITOR IN PLACE;IV SITE INFUSING NS @ 50ML/HR WITH EASE;ENCOURAGED PT TO CALL FOR ASSISTANCE IF NEEDED;CALL LIGHT IN REACH;WILL CONTINUE TO MONITOR
[2018-06-13 15:17] VITALS: BP 113/84
--- NOTE | 2018-06-13 16:30 | NUR ---
PT RESTING IN SEMI FOWLERS POSITION WITH FAMILY MEMBERS AT BEDSIDE;PT DENIES ANY CURRENT PAIN OR NEEDS;RESPIRATIONS APPEAR EVEN AND UNLABORED ON 02 @ 6L HUM VIA NC;TELE MONITOR IN PLACE;IV SITE PATENT INFUSING NS @ 50ML/HR;PT ENCOURAGED TO CALL FOR ASSISTANCE IF NEEDED;CALL LIGHT IN REACH;WILL CONTINUE TO MONITOR
[2018-06-13 20:55] VITALS: BP 117/77
--- NOTE | 2018-06-13 20:55 | NUR ---
PT IN BED WEARING CPAP FROM HOME, A/O X3, RESPIRATIONS EVEN AND UNLABORED. AWARE OF FLUID RESTRICTION 1500ML IN 24HOURS. NS INFUSING TO LFA AT 50ML/HR. FAMILY AT BED SIDE. ENCOURAGED TO USE CALL LIGHT FOR ASSISTANCE.
[2018-06-14] VITALS: BP 115/81
--- NOTE | 2018-06-14 00:10 | NUR ---
RESTING WITH EYES CLOSED, RESPIRATIONS EVEN AND UNLABORED ON OWN CPAP FROM HOME. CALL LIGHT IN REACH. WILL CONTINUE TO MONITOR.
--- NOTE | 2018-06-14 03:34 | NUR ---
C/O PAIN TO BACK OF NECK 07/07, ULTRAM 50MG PROVIDED PER MAR. GALVEZ GRANTS ANALYST IN FOR LABS.
[2018-06-14 04:23] VITALS: BP 124/85
[2018-06-14 05:24] LABS: HEMATOCRIT 42.1 % (37.0-47.0); MEAN CELL VOLUME 82.7 fL CALC (80.0-100.0); MEAN CORPUSCULAR HGB 25.5 pG CALC (26.0-32.0); MEAN CORPUSCULAR HGB CONC 30.9 g/L CALC (32.0-36.0); RED BLOOD COUNT 5.09 mill/uL (4.20-5.60); RED CELL DISTRI WIDTH 15.9 % (11.5-15.5)
[2018-06-14 05:40] LABS: CREATININE 1.8 mg/dL (0.5-1.0); MAGNESIUM 2.1 mg/dL (1.6-2.3); POTASSIUM 4.3 mmol/l (3.5-5.1)
--- NOTE | 2018-06-14 07:15 | NUR ---
REPORT RECEIVED FROM HUNG ROMAN;PT RESTING IN SEMI FOWLERS POSITION;RESPIRATIONS APPEAR EVEN AND UNLABORED ON HOME CPAP;INTRODUCED SELF TO PT AND POC DISCUSSED;PT DENIES ANY CURRENT PAIN OR NEEDS;IV SITE PATENT AND TELE MONITOR IN PLACE;ENCOURAGED PT TO CALL FOR ASSISTANCE IF NEEDED;CALL LIGHT IN REACH;WILL CONTINUE TO MONITOR
[2018-06-14 08:44] VITALS: BP 113/76
--- NOTE | 2018-06-14 08:45 | NUR ---
PT RESTING IN SEMI FOWLERS POSITION;PT DENIES ANY CURRENT PAIN OR NAUSEA;VS OBTAINED AND ASSESSMENT COMPLETED;RESPIRATIONS EVEN AND UNLABORED,SHALLOW ON 02 @ 6L HUM VIA NC;ABDOMEN DISTENDED/SOFT ON PALPATION AND ACTIVE IN ALL 4 QUADRANTS;TRACE EDEMA NOTED TO BILATERAL ANKLES AND FACIAL EDEMA NOTED;SKIN INTACT;EMS #20G TO LEFT FOREARM INFUSING NS @ 50ML/HR,SITE APPEARS HEALTHY;PT DENIES IV SITE CHANGE;TELE MONITOR IN PLACE;PT DENIES ANY ADDITIONAL NEEDS AND IS ENCOURAGED TO CALL FOR ASSISTANCE IF NEEDED;CALL LIGHT IN REACH;WILL CONTINUE TO MONITOR
--- NOTE | 2018-06-14 10:15 | NUR ---
[facility] AT BEDSIDE
[2018-06-14 11:14] VITALS: BP 144/91
--- NOTE | 2018-06-14 12:10 | NUR ---
PT RESTING IN SEMI FOWLERS POSITION WITH FAMILY AT BEDSIDE;RESPIRATIONS EVEN AND UNLABORED ON 02 @ 6L HUM;IV SITE PATENT;PT DENIES ANY CURRENT PAIN OR NAUSEA;ENCOURAGED TO CALL FOR ASSISTANCE IF NEEDED;CALL LIGHT IN REACH;WILL CONTINUE TO MONITOR
[2018-06-14] MEDS ORDERED: PREDNISONE10 MG PO (13:14)
[2018-06-14] MEDS ORDERED: CYCLOBENZAPR5 MG PO (13:14)
--- NOTE | 2018-06-14 13:50 | NUR ---
ALL DISCHARGE INFORMATION PROVIDED AT THIS TIME AND PRESCRIPTIONS EXPLAINING IN DEPTH;PT RE-ASSURED AND QUESTIONS ANSWERED;IV SITE REMOVED WITH CATHETER INTACT;WHEELCHAIR TO BE PROVIDED FOR DISCHARGE.AWAITING TRANSPORTATION HOME.
--- NOTE | 2018-06-14 14:59 | NUR ---
Discharge instructions given. Patient verbalizes understanding of same. Discharged in stable condition via Wheelchair to Home with family. All belongings sent with pt.
== END 2018-06-14 15:00 | disposition home health service (06) | DRG 291 ==
LOC: ED 00:39 → ED-I 03:00 → ED 03:30 → MS2 03:31
PROVIDERS: Emergency Medicine; Internal Medicine Nephrology; Nurse Practitioner Family; ADMIT Internal Medicine; ATTEND Internal Medicine
DX: I13.0 Hypertensive heart and chronic kidney disease with heart failure and stage 1 through stage 4 chronic kidney disease, or unspecified chronic kidney disease (principal); J96.21 Acute and chronic respiratory failure with hypoxia; I50.33 Acute on chronic diastolic (congestive) heart failure; J44.1 Chronic obstructive pulmonary disease with (acute) exacerbation; E87.1 Hypo-osmolality and hyponatremia; N17.9 Acute kidney failure, unspecified; E87.3 Alkalosis; E11.22 Type 2 diabetes mellitus with diabetic chronic kidney disease; N18.3 Chronic kidney disease, stage 3 (moderate); E86.0 Dehydration; E86.1 Hypovolemia; G47.33 Obstructive sleep apnea (adult) (pediatric); I25.10 Atherosclerotic heart disease of native coronary artery without angina pectoris; I73.9 Peripheral vascular disease, unspecified; E78.5 Hyperlipidemia, unspecified; E11.40 Type 2 diabetes mellitus with diabetic neuropathy, unspecified; E87.6 Hypokalemia; D64.9 Anemia, unspecified; I95.9 Hypotension, unspecified; K21.9 Gastro-esophageal reflux disease without esophagitis; I27.20 Pulmonary hypertension, unspecified; Z79.4 Long term (current) use of insulin; Z99.81 Dependence on supplemental oxygen; Z86.73 Personal history of transient ischemic attack (TIA), and cerebral infarction without residual deficits; Z87.891 Personal history of nicotine dependence; Z95.5 Presence of coronary angioplasty implant and graft; Z95.828 Presence of other vascular implants and grafts
CPT/HCPCS: G0378

== ENCOUNTER 2018-06-15 13:38 | Emergency (ER) | payer MEDICARE ==
[~2018-06-15] VITALS: Ht 167.6 cm; Wt 120.0 kg
[~2018-06-15 13:38] MED LIST changes: +ALLEGRA180 MG PO; +BUMEX1 M1 PO; +CILOSTAZOL100 MG PO; +CYCLOBENZAPR5 MG PO; +DULERA1 AE1 IN; +LOSARTAN POT50 MG PO; +PROTONIX40 M2 PO; +SPIRIVA HANDIH18 MCG IN; +VENTOLIN HFA IN
[2018-06-15 15:25] LABS: HEMATOCRIT 42.1 % (37.0-47.0); HEMOGLOBIN 13.2 g/dl (12.0-16.0); IMMATURE GRANULOCYTES 1.5 % (0.0-5.0); MEAN CELL VOLUME 81.6 fL CALC (80.0-100.0); MEAN CORPUSCULAR HGB 25.6 pG CALC (26.0-32.0); MEAN CORPUSCULAR HGB CONC 31.4 g/L CALC (32.0-36.0); RED BLOOD COUNT 5.16 mill/uL (4.20-5.60); RED CELL DISTRI WIDTH 16.6 % (11.5-15.5)
[2018-06-15 15:47] LABS: ALBUMIN 3.2 g/dL (3.2-5.0); BILIRUBIN, TOTAL 1.3 mg/dL (0.0-1.4); CREATININE 2.2 mg/dL (0.5-1.0); TOTAL PROTEIN 6.5 g/dL (6.3-8.2)
[2018-06-15 15:55] LABS: POTASSIUM 5.9 mmol/l (3.5-5.1)
[2018-06-15 17:46] VITALS: BP 141/83
== END 2018-06-15 17:47 | disposition short-term general hospital (02) ==
LOC: ED 13:38
PROVIDERS: Emergency Medicine
DX: R10.9 Unspecified abdominal pain (principal); R79.89 Other specified abnormal findings of blood chemistry; J44.9 Chronic obstructive pulmonary disease, unspecified; I11.0 Hypertensive heart disease with heart failure; I50.9 Heart failure, unspecified; E11.9 Type 2 diabetes mellitus without complications; Z95.5 Presence of coronary angioplasty implant and graft; Z86.73 Personal history of transient ischemic attack (TIA), and cerebral infarction without residual deficits; R94.31 Abnormal electrocardiogram [ECG] [EKG]